=== PATIENT | female | born 1960 | race Two or more races ===

== ENCOUNTER → 2021-04-07 | Emergency (ER) | payer OTHER ==
[~2021-04-07] VITALS: Ht 152.4 cm; Wt 66.7 kg
[~2021-04-07] MED LIST: CARVEDILOL25 MG PO; CRESTOR40 MG PO; NORVASC5 MG PO; PROSCAR5 MG PO; PROZAC40 MG PO; SYNTHROID100 MCG PO; SYNTHROID88 MCG PO
== END | disposition left against medical advice (07) ==
LOC: ER 12:22
DX: Z53.20 Procedure and treatment not carried out because of patient's decision for unspecified reasons (principal)